=== PATIENT | male | born 1995 | race Caucasian/White ===

== ENCOUNTER 2017-02-16 16:09 | Emergency (ER) | payer OTHER ==
[~2017-02-16] VITALS: Ht 188 cm; Wt 99.8 kg
== END 2017-02-16 17:44 | disposition home or self-care (01) ==
LOC: ED 16:09
DX: Z04.1 Encounter for examination and observation following transport accident (principal); V58.6XXA Passenger in pick-up truck or van injured in noncollision transport accident in traffic accident, initial encounter; Y92.69 Other specified industrial and construction area as the place of occurrence of the external cause; Y99.8 Other external cause status
CPT/HCPCS: 99282